=== PATIENT | female | born 1995 | race Two or more races ===

== ENCOUNTER 2017-09-15 00:41 | Emergency (ER) | payer MEDICAID ==
[~2017-09-15] VITALS: Ht 160 cm; Wt 56.7 kg
[2017-09-15 00:50] VITALS: BP 139/91
--- NOTE | 2017-09-15 00:57 | NUR ---
22 yo female bb . patient is alert x 3, c/o sore throat. patient ambulated to er bed, skin warm and dry, resp even and unlabored. pt gowned,place don cardiac tech. awaiting orders from provider, will continue to monitor
== END 2017-09-15 01:51 | disposition home or self-care (01) ==
LOC: ER 00:47
DX: F41.9 Anxiety disorder, unspecified (principal); J02.9 Acute pharyngitis, unspecified; Z88.1 Allergy status to other antibiotic agents
CPT/HCPCS: 87070; 87880; 99284; A4606; Z7610; 86403-TC

== ENCOUNTER 2017-12-09 11:59 | Emergency (ER) | payer MEDICAID, OTHER ==
[~2017-12-09] VITALS: Ht 160 cm; Wt 56.7 kg
[2017-12-09 12:07] VITALS: BP 106/60
[2017-12-09] MEDS ORDERED: KETOROLAC TROMETHAMINE INJ 60 MG/2 ML VIAL IM ONE (12:30)
[2017-12-09 13:08] LABS: APPEARANCE,URINE Cloudy (CLEAR); BILIRUBIN,URINE Negative (NEGATIVE); BLOOD, URINE Large Ery/uL (NEGATIVE); COLOR,URINE Orange (YELLOW); KETONES,URINE Negative (NEGATIVE); LEUKOCYTE ESTERASE ,URINE Negative (NEGATIVE); NITRITE, URINE Negative (NEGATIVE); PH,URINE 5.5 (5.0-8.0); PROTEIN,URINE Trace mg/dl (NEGATIVE); UGLUCOSE Negative (NEGATIVE); UROBILINOGEN,URINE 0.2 EU/dL (0.2)
[2017-12-09] MEDS ORDERED: KETOROLAC TROMETHAMINE INJ 30 MG/ML VIAL ONE (13:24)
[2017-12-09 13:35] LABS: RBC,URINE TOO NUMEROUS TO COUN /HPF (0-2)
[2017-12-09 13:36] LABS: BACTERIA,URINE Rare /HPF (None Seen); SQUAMOUS EPITHELIAL CELL,UR Few /HPF (None Seen); WBC,URINE NONE SEEN /HPF (0-3)
== END 2017-12-09 13:40 | disposition home or self-care (01) ==
LOC: ER 12:03
DX: N94.6 Dysmenorrhea, unspecified (principal); Z88.1 Allergy status to other antibiotic agents
CPT/HCPCS: 81001; 84703; 96372; 99284; A4606; J1885; Z7610; 81000-TC

== ENCOUNTER 2018-06-07 22:49 | Emergency (ER) | payer SELFPAY ==
[~2018-06-07] VITALS: Ht 162.6 cm; Wt 60.3 kg
--- NOTE | 2018-06-07 23:15 | NUR ---
pt bib family. pt c/o on & off dull pain on Rt lower quadrant abd that is radiating to the right flank. pt resting in bed comfortably. No s/s of acute distress or sob noted. Waiting to be seen by MD.
--- NOTE | 2018-06-07 23:41 | NUR ---
labs being drawn at bedside
[2018-06-07] MEDS ORDERED: IBUPROFEN 600 MG TABLET PO ONE (23:55)
[2018-06-07 23:56] LABS: HEMATOCRIT 38 % (33-45); HEMOGLOBIN 13.4 g/dL (11.5-14.8); MEAN CORPUSCULAR HEMOGLOBIN 31 PG (26.0-33.0); MEAN CORPUSCULAR HGB CONC 35 g/dl (31.0-36.0); MEAN CORPUSCULAR VOLUME 90 fL (82-100); NEUTROPHILS % (AUTO) 52.8 % (43.0-81.0); PLATELET COUNT (AUTO) 236 /CMM (150-450); RDW COEFFICIENT OF VARIATION 12.7 (11.5-15.0); RED BLOOD CELL COUNT(AUTO) 4.27 MIL/uL (4.0-5.2)
[2018-06-07 23:57] LABS: BASOPHILS % (AUTO) 0.8 % (0.0-2.0); EOSINOPHILS % (AUTO) 1.6 % (0.0-6.0); LYMPHOCYTES % (AUTO) 39.9 % (20.0-44.0); MONOCYTES % (AUTO) 4.9 % (2.0-12.0)
[2018-06-07 23:59] LABS: CALCIUM, SERUM 8.5 mg/dL (8.5-10.1); CREATININE 0.5 mg/dL (0.6-1.3); POTASSIUM 3.3 mmol/L (3.5-5.1)
[2018-06-08] MEDS: IBUPROFEN 600 MG TABLET PO ONE (00:01)
--- NOTE | 2018-06-08 00:02 | NUR ---
ordered meds given
[2018-06-08 00:05] LABS: ALBUMIN 4.1 g/dL (3.4-5.0); BILIRUBIN,DIRECT 0.1 mg/dL (0.0-0.2); BILIRUBIN,TOTAL 0.5 mg/dL (0.2-1.0); TOTAL PROTEIN, SERUM 7.4 g/dL (6.4-8.2)
[2018-06-08 00:30] LABS: APPEARANCE,URINE SL CLOUDY (CLEAR); BILIRUBIN,URINE NEGATIVE (NEGATIVE); BLOOD, URINE NEGATIVE Ery/uL (NEGATIVE); COLOR,URINE YELLOW (YELLOW); KETONES,URINE NEGATIVE (NEGATIVE); LEUKOCYTE ESTERASE ,URINE NEGATIVE (NEGATIVE); NITRITE, URINE NEGATIVE (NEGATIVE); PROTEIN,URINE NEGATIVE (NEGATIVE); UGLUCOSE NEGATIVE (NEGATIVE); UROBILINOGEN,URINE 0.2 EU/dL (0.2)
--- NOTE | 2018-06-08 00:35 | NUR ---
US pelvic being done at bedside
--- NOTE | 2018-06-08 02:53 | NUR ---
Patient discharged to home in stable condition. Written and verbal after care instructions given. Patient verbalizes understanding of instruction. Patient left the facility on foot walking with steady gait. No s/s of acute distress or sob noted. VS stable. Friend at bedside will take pt home.
[2018-06-08 02:55] VITALS: BP 110/68
== END 2018-06-08 02:56 | disposition home or self-care (01) ==
LOC: ER 22:49
DX: R10.31 Right lower quadrant pain (principal); R10.2 Pelvic and perineal pain; R19.7 Diarrhea, unspecified; Z88.1 Allergy status to other antibiotic agents
CPT/HCPCS: 36415; 76856-TC; 80048-TC; 80076-TC; 81000-TC; 83690-TC; 84703-TC; 85025-TC; A4606; Z7610

== ENCOUNTER 2018-11-24 14:50 | Emergency (ER) | payer MEDICAID, OTHER ==
[~2018-11-24] VITALS: Ht 160 cm; Wt 60.8 kg
--- NOTE | 2018-11-24 15:29 | NUR ---
PT AMBULATED TO THE BATHROOM TO GIVE A URINE SAMPLE.
--- NOTE | 2018-11-24 15:34 | NUR ---
Carolina LAM PA-C IS A THE BEDSIDE.
--- NOTE | 2018-11-24 15:45 | NUR ---
US IN PROGRESS AT THE BEDSIDE.
[2018-11-24 16:21] LABS: BASOPHILS # (AUTO) 0.1 /CMM (0.0-0.2); BASOPHILS % (AUTO) 0.7 % (0.0-2.0); EOSINOPHILS % (AUTO) 0.6 % (0.0-6.0); HEMATOCRIT 36 % (33-45); HEMOGLOBIN 12.6 g/dL (11.5-14.8); LYMPHOCYTES # (AUTO) 1.4 /CMM (0.8-4.8); LYMPHOCYTES % (AUTO) 16.7 % (20.0-44.0); MEAN CORPUSCULAR HGB CONC 35 g/dl (31.0-36.0); MEAN CORPUSCULAR VOLUME 91 fL (82-100); MONOCYTES # (AUTO) 0.4 /CMM (0.1-1.30); MONOCYTES % (AUTO) 4.6 % (2.0-12.0); NEUTROPHILS # (AUTO) 6.3 /CMM (1.8-8.9); NEUTROPHILS % (AUTO) 77.4 % (43.0-81.0); PLATELET COUNT (AUTO) 226 /CMM (150-450); RED BLOOD CELL COUNT(AUTO) 3.97 MIL/uL (4.0-5.2); WHITE BLOOD COUNT (AUTO) 8.1 K/uL (4.3-11.0)
[2018-11-24 16:27] LABS: CALCIUM, SERUM 9.1 mg/dL (8.5-10.1); CREATININE 0.4 mg/dL (0.6-1.3); POTASSIUM 4.3 mmol/L (3.5-5.1)
[2018-11-24 16:54] LABS: ALBUMIN 3.5 g/dL (3.4-5.0); BILIRUBIN,DIRECT 0.1 mg/dL (0.0-0.2); BILIRUBIN,TOTAL 0.4 mg/dL (0.2-1.0); TOTAL PROTEIN, SERUM 7.2 g/dL (6.4-8.2)
[2018-11-24 17:17] LABS: APPEARANCE,URINE Cloudy (CLEAR); BILIRUBIN,URINE Negative (NEGATIVE); BLOOD, URINE Negative Ery/uL (NEGATIVE); COLOR,URINE Yellow (YELLOW); KETONES,URINE 40 (NEGATIVE); LEUKOCYTE ESTERASE ,URINE Trace (NEGATIVE); NITRITE, URINE Negative (NEGATIVE); PH,URINE 6.5 (5.0-8.0); PROTEIN,URINE Negative (NEGATIVE); UGLUCOSE Negative (NEGATIVE); UROBILINOGEN,URINE 0.2 EU/dL (0.2)
[2018-11-24 17:31] LABS: BACTERIA,URINE Moderate /HPF (None Seen); RBC,URINE 0-2 /HPF (0-2); SQUAMOUS EPITHELIAL CELL,UR Many /HPF (None Seen)
--- NOTE | 2018-11-24 18:00 | NUR ---
THE SAP PP CONSULTANT AT [facility], NOTIFIED [facility] THAT PT HAD NO EMERGENCY CONTACTS AND NO ADVANCED DIRECTIVES
[2018-11-24 18:43] VITALS: BP 106/68
== END 2018-11-24 18:44 | disposition home or self-care (01) ==
LOC: ER 14:53
DX: O26.892 Other specified pregnancy related conditions, second trimester (principal); Z88.1 Allergy status to other antibiotic agents; Z3A.15 15 weeks gestation of pregnancy
CPT/HCPCS: 36415; 76805-TC; 80048-TC; 80076-TC; 81000-TC; 84702-TC; 85025-TC; 87086-TC

== ENCOUNTER 2018-12-10 09:08 | Emergency (ER) | payer OTHER ==
[~2018-12-10] VITALS: Ht 162.6 cm; Wt 60.8 kg
[2018-12-10] MEDS ORDERED: ACETAMINOPHEN ES 500 MG TABLET ONE (09:28)
[2018-12-10] MEDS ORDERED: ACETAMINOPHEN ES 500 MG TABLET PO ONE (09:30)
[2018-12-10 09:38] LABS: BASOPHILS % (AUTO) 0.7 % (0.0-2.0); EOSINOPHILS % (AUTO) 1.6 % (0.0-6.0); HEMATOCRIT 33 % (33-45); HEMOGLOBIN 11.8 g/dL (11.5-14.8); LYMPHOCYTES # (AUTO) 1.4 /CMM (0.8-4.8); LYMPHOCYTES % (AUTO) 24.9 % (20.0-44.0); MEAN CORPUSCULAR HGB CONC 35 g/dl (31.0-36.0); MEAN CORPUSCULAR VOLUME 90 fL (82-100); MONOCYTES # (AUTO) 0.3 /CMM (0.1-1.30); MONOCYTES % (AUTO) 5.4 % (2.0-12.0); NEUTROPHILS # (AUTO) 3.9 /CMM (1.8-8.9); NEUTROPHILS % (AUTO) 67.4 % (43.0-81.0); PLATELET COUNT (AUTO) 197 /CMM (150-450); WHITE BLOOD COUNT (AUTO) 5.7 K/uL (4.3-11.0)
[2018-12-10 09:45] LABS: CALCIUM, SERUM 8.3 mg/dL (8.5-10.1); CREATININE 0.4 mg/dL (0.6-1.3); POTASSIUM 3.6 mmol/L (3.5-5.1)
--- NOTE | 2018-12-10 09:54 | NUR ---
PER PATIENT, SHE'S UNABLE TO PROVIDE UA SAMPLE AT THIS TIME. SHE STATED SHE WENT TO THE RESTROOM PRIOR TO COMING IN ER.
[2018-12-10 10:42] VITALS: BP 105/60
--- NOTE | 2018-12-10 10:45 | NUR ---
Patient discharged to home in stable condition. Written and verbal after care instructions given. Patient verbalizes understanding of instruction.
== END 2018-12-10 10:45 | disposition home or self-care (01) ==
LOC: ER 09:10
DX: O26.892 Other specified pregnancy related conditions, second trimester (principal); R10.31 Right lower quadrant pain; Z3A.16 16 weeks gestation of pregnancy; Z88.1 Allergy status to other antibiotic agents
CPT/HCPCS: 36415; 76805-TC; 80048-TC; 84702-TC; 85025-TC

== ENCOUNTER 2019-09-01 15:21 | Emergency (ER) | payer OTHER ==
[~2019-09-01] VITALS: Ht 162.6 cm; Wt 59.0 kg
[2019-09-01 15:40] VITALS: BP 108/69
--- NOTE | 2019-09-01 16:58 | NUR ---
CALLED TO [facility] NO ANSWER.
--- NOTE | 2019-09-01 17:16 | NUR ---
CALLED TO [facility] NO ANSWER.
--- NOTE | 2019-09-01 17:16 | NUR ---
Patient eloped from facility. ER MD notified.
== END 2019-09-01 17:29 | disposition left against medical advice (07) ==
LOC: ER 15:22
DX: Z53.21 Procedure and treatment not carried out due to patient leaving prior to being seen by health care provider (principal); M79.89 Other specified soft tissue disorders